=== PATIENT | female | born 1975 | race Caucasian/White ===

== ENCOUNTER 2018-07-19 07:44 | Emergency (ER) | payer OTHER ==
[2018-07-19] MEDS ORDERED: LORazepam 2 MG/ML VIAL IVP ONE ×2 (08:00→08:15)
[2018-07-19] MEDS ORDERED: ONDANSETRON 4 MG/2 ML VIAL IVP ONE (08:10)
[2018-07-19 08:15] LABS: INR 0.94
--- NOTE | 2018-07-19 08:15 | ER Report ---
History and Physical Time Seen By MD: 08:12 Hx. of Stated Complaint: CHEST PRESSURE HPI/ROS CHIEF COMPLAINT: Chest pain, chest tightness, forearm and wrist spasm. HISTORY OF PRESENT ILLNESS: Patient is a 43-year-old female who works at the [employer] who presents to the emergency department by ambulance for an episode of chest pain. Symptoms started around 7:15 this morning. Patient was complaining of tightness in the chest had some rapid breathing also complaining of spasm in the forearm and wrists bilaterally. Patient was given aspirin prior to arrival. And has no prior history of similar episodes and denies any significant past medical history including cardiac history. Patient states that she just "doesn't feel well". She does report some nausea. No report of infection like symptoms including fevers or chills. REVIEW OF SYSTEMS: Constitutional: No fever, no chills. Eyes: No discharge. ENT: No sore throat. Cardiovascular: Chest tightness Respiratory: Shortness of breath Gastrointestinal: Nausea, no abdominal pain Genitourinary: No hematuria. Musculoskeletal: No back pain. Skin: No rashes. Neurological: No headache. Allergies: Coded Allergies: prochlorperazine (Verified Allergy, Intermediate, 07/19/18) Home Meds Active Scripts Lorazepam (ATIVAN) 1 Mg Tablet, 1 MG PO Q8H for anxiety, #15 TAB 0 Refills Prov:CORIN OGLESBY MD 07/19/18 Past Medical/Surgical History Patient denies Constitutional Vital Sign - Last 24 Hours 07/19/18 07/19/18 07/19/18 07/19/18 07:45 07:49 07:50 08:00 Temp 97.4 Pulse ??? 76 83 Resp 30 27 B/P (MAP) 133/79 (97) 133/79 133/78 (96) Pulse Ox 99 96 O2 Delivery Room Air 07/19/18 07/19/18 07/19/18 07/19/18 08:15 08:30 08:45 09:26 Pulse 93 75 84 Resp 31 30 30 B/P (MAP) 131/96 (108) 147/81 (103) 140/62 (88) Pulse Ox 90 O2 Flow Rate 1.0 Physical Exam General/Constitutional: Patient is awake, alert, nontoxic, appears anxious and is hyperventilating. Head: Normocephalic and atraumatic. Eyes: Conjunctival clear, Pupils are equal and reactive to light. Extraocular muscles are intact and symmetrical. Sclera are clear and anicteric. Ears:External canals are clear. Tympanic membranes are clear with normal landmarks and light reflex. Nares: No rhinorrhea or bleeding. Turbinates are pink and moist. Oropharyngeal: Mucous membranes are moist. There is no pharyngeal erythema or exudate. There are no palatal petechiae. Uvula is midline and symmetrical. Neck: Supple, no adenopathy. Cardiovascular: Heart is regular rate and rhythm without audible murmurs, rubs or gallops. Pulmonary: Lungs are clear to auscultation bilaterally. There are no wheezes, rales, or rhonchi. Chest rise is symmetrical Abdomen: Soft, nontender, no guarding or peritoneal signs. Extremities: No gross deformities, No peripheral cyanosis. Patient is having episodes of carpopedal spasm Neuro: Alert and oriented X3, Skin: No rashes, skin is warm dry and well perfused. Medical Decision Making Data Points Result Diagram: 07/19/18 0745 07/19/18 0745 Laboratory Hematology Test 07/19/18 07:45 07/19/18 10:58 Red Blood Count 5.24 M/uL (4.17-5.56) Mean Corpuscular Volume 89.4 fL (80.0-96.0) Mean Corpuscular Hemoglobin 29.9 pg (26.0-33.0) Mean Corpuscular Hemoglobin Concent 33.4 g/dL (32.0-36.0) Red Cell Distribution Width 13.7 % (11.5-14.5) Mean Platelet Volume 10.0 fL (7.2-11.1) Neutrophils (%) (Auto) 77.3 % (39.4-72.5) Lymphocytes (%) (Auto) 17.1 % (17.6-49.6) Monocytes (%) (Auto) 5.1 % (4.1-12.4) Eosinophils (%) (Auto) 0.1 % (0.4-6.7) Basophils (%) (Auto) 0.4 % (0.3-1.4) Nucleated RBC Relative Count (auto) 0.1 /100WBC Neutrophils # (Auto) 9.5 K/uL (2.0-7.4) Lymphocytes # (Auto) 2.1 K/uL (1.3-3.6) Monocytes # (Auto) 0.6 K/uL (0.3-1.0) Eosinophils # (Auto) 0.0 K/uL (0.0-0.5) Basophils # (Auto) 0.1 K/uL (0.0-0.1) Nucleated RBC Absolute Count (auto) 0.01 K/uL Prothrombin Time 12.5 seconds (12.0-14.4) Prothromb Time International Ratio 0.94 Activated Partial Thromboplast Time 35 seconds (23-35) Sodium Level 140 mmol/L (137-145) Potassium Level 4.2 mmol/L (3.5-5.0) Chloride Level 113 mmol/L (98-107) Carbon Dioxide Level 17 mmol/L (22-31) Blood Urea Nitrogen 10 mg/dl (7-18) Creatinine 0.80 mg/dl (0.52-1.04) Glomerular Filtration Rate Calc > 60.0 Random Glucose 111 mg/dl (75-110) Calcium Level 9.4 mg/dl (8.4-10.2) Total Bilirubin 0.6 mg/dl (0.2-1.3) Aspartate Amino Transf (AST/SGOT) 19 U/L (0-35) Alanine Aminotransferase (ALT/SGPT) 13 U/L (0-56) Alkaline Phosphatase 95 U/L (0-126) B-Type Natriuretic Peptide 8 pg/ml (0-100) Total Protein 8.0 g/dl (6.3-8.2) Albumin 4.3 g/dl (3.5-5.0) Human Chorionic Gonadotropin, Qual Negative (NEGATIVE) Troponin I < 0.012 ng/ml Chemistry Test 07/19/18 07:45 07/19/18 10:58 White Blood Count 12.3 k/uL (4.5-11.0) Red Blood Count 5.24 M/uL (4.17-5.56) Hemoglobin 15.6 g/dL (12.0-16.0) Hematocrit 46.8 % (34.0-47.0) Mean Corpuscular Volume 89.4 fL (80.0-96.0) Mean Corpuscular Hemoglobin 29.9 pg (26.0-33.0) Mean Corpuscular Hemoglobin Concent 33.4 g/dL (32.0-36.0) Red Cell Distribution Width 13.7 % (11.5-14.5) Platelet Count 357 K/uL (150-450) Mean Platelet Volume 10.0 fL (7.2-11.1) Neutrophils (%) (Auto) 77.3 % (39.4-72.5) Lymphocytes (%) (Auto) 17.1 % (17.6-49.6) Monocytes (%) (Auto) 5.1 % (4.1-12.4) Eosinophils (%) (Auto) 0.1 % (0.4-6.7) Basophils (%) (Auto) 0.4 % (0.3-1.4) Nucleated RBC Relative Count (auto) 0.1 /100WBC Neutrophils # (Auto) 9.5 K/uL (2.0-7.4) Lymphocytes # (Auto) 2.1 K/uL (1.3-3.6) Monocytes # (Auto) 0.6 K/uL (0.3-1.0) Eosinophils # (Auto) 0.0 K/uL (0.0-0.5) Basophils # (Auto) 0.1 K/uL (0.0-0.1) Nucleated RBC Absolute Count (auto) 0.01 K/uL Prothrombin Time 12.5 seconds (12.0-14.4) Prothromb Time International Ratio 0.94 Activated Partial Thromboplast Time 35 seconds (23-35) Glomerular Filtration Rate Calc > 60.0 Calcium Level 9.4 mg/dl (8.4-10.2) Total Bilirubin 0.6 mg/dl (0.2-1.3) Aspartate Amino Transf (AST/SGOT) 19 U/L (0-35) Alanine Aminotransferase (ALT/SGPT) 13 U/L (0-56) Alkaline Phosphatase 95 U/L (0-126) B-Type Natriuretic Peptide 8 pg/ml (0-100) Total Protein 8.0 g/dl (6.3-8.2) Albumin 4.3 g/dl (3.5-5.0) Human Chorionic Gonadotropin, Qual Negative (NEGATIVE) Troponin I < 0.012 ng/ml Coagulation Test 07/19/18 07:45 Prothrombin Time 12.5 seconds Prothromb Time International Ratio 0.94 Activated Partial Thromboplast Time 35 seconds EKG/Imaging EKG Interpretation EKG shows sinus rhythm with short NH interval. With nonspecific ST segment abnormality no prior EKG to compare with. Monitor Interpretation: Normal Sinus Rhythm Imaging [place] [facility] [place] NAME: Tracie Santos : 1975 MR: [id number] V: [id number] EXAM DATE: ORDERING PHYSICIAN: CORIN OGLESBY TECHNOLOGIST: Location: [facility] Patient: Tracie Santos : 1975 Visit/Account:[id number] Date of Sevice: 07/19/2018 Study: Single portable view of the chest. Indication: Chest pain. Comparison study: None. Technique: Single AP view of the chest demonstrates no evidence of acute infiltrate. There is no evidence of pleural effusion or pneumothorax. The mediastinal, cardiac, and diaphragmatic contours are unremarkable. IMPRESSION: Unremarkable chest. Report Dictated By: Mohinder Arguello at 07/19/2018 8:22 AM Report E-Signed By: Mohinder Arguello at 07/19/2018 8:23 AM WSN:[id number] ED Course/Re-evaluation ED Course 07/19/2018 8:14:52 am plan at this time will be to give IV Ativan for treatment of hyperventilation. We will perform cardiac workup with a troponin. More likely patient is experiencing chest tightness and carpopedal spasm from hyperventilation rather than from acute coronary syndrome. 07/19/2018 8:47:07 am chest x-ray and blood work normal with the exception of a low CO2 level which is expected due to the patient's rapid breathing. [place] very strongly now that symptoms are related to hyperventilation. Have been doing improved although now she states that her symptoms are worse she is breathing approximate 40 times per minute despite 1.5 mg of Ativan 75 g of fentanyl. We'll try some Toradol for pain and carpopedal spasm we'll also give 50 mg of Benadryl to assist with sedation. 07/19/2018 9:07:05 am and symptoms markedly improved after Benadryl. Still having some Carpopedal spasm I will tried IV Norflex to assist with muscle relaxation. But breathing seems to have improved. Patient no longer complaining of chest tightness. 07/19/2018 11:26:25 am repeat troponin is negative will discharge home with diagnosis of hyperventilation syndrome Decision to Disposition Date: Jul 19, 2018 Decision to Disposition Time: 11:26 Depart Departure Latest Vital Signs Vital Signs Date Time Temp Pulse Resp B/P (MAP) Pulse Ox O2 Delivery O2 Flow Rate FiO2 07/19/18 09:26 1.0 07/19/18 08:45 84 30 140/62 (88) 90 07/19/18 07:50 97.4 Room Air Impression: Primary Impression: Hyperventilation syndrome Condition: Improved Disposition: HOME OR SELF-CARE Referrals: PRISCILLA OMALLEY MD Called to schedule a follow-up appointment and establish care New Scripts Lorazepam (ATIVAN) 1 Mg Tablet 1 MG PO Q8H for anxiety, #15 TAB 0 Refills Prov: CORIN OGLESBY MD 07/19/18 Patient Instructions: Hyperventilation (ED) CORIN OGLESBY MD Jul 19, 2018 08:15
[2018-07-19 08:19] LABS: PLATELET COUNT, AUTOMATED 357 K/uL (150-450)
--- NOTE | 2018-07-19 08:25 | RADIOLOGY IMAGING REPORT ---
FACILITY: [facility] [place] PATIENT NAME: Tracie Santos : 1975 MR: [id number] V: [id number] EXAM DATE: ORDERING PHYSICIAN: CORIN OGLESBY TECHNOLOGIST: Location: [facility] Patient: Tracie Santos : 1975 Visit/Account:[id number] Date of Sevice: 07/19/2018 Study: Single portable view of the chest. Indication: Chest pain. Comparison study: None. Technique: Single AP view of the chest demonstrates no evidence of acute infiltrate. There is no evid ence of pleural effusion or pneumothorax. The mediastinal, cardiac, and diaphragmatic contours are un remarkable. IMPRESSION: Unremarkable chest. Report Dictated By: Mohinder Arguello at 07/19/2018 8:22 AM Report E-Signed By: Mohinder Arguello at 07/19/2018 8:23 AM WSN:[id number]
[2018-07-19] MEDS ORDERED: fentaNYL CITR 100 MCG/2 ML AMP IVP ONE (08:30)
--- NOTE | 2018-07-19 08:41 | EKG ---
FACILITY: [facility] [place] PATIENT NAME: VIPUL ANDREWS : [id number] MR: [id number] V: [id number] EXAM DATE: ORDERING PHYSICIAN: CORIN OGLESBY TECHNOLOGIST: VICTOR M Test Reason : CHEST PAIN Blood Pressure : / mmHG Vent. Rate : 068 BPM Atrial Rate : 068 BPM P-R Int : 090 ms QRS Dur : 080 ms QT Int : 434 ms P-R-T Axes : 030 -03 008 degrees QTc Int : 461 ms Sinus rhythm with short ID Non-specific T changes. Abnormal ECG No previous ECGs available Confirmed by JAIRO BUTLER ([id number]) on 07/19/2018 8:59:47 AM Referred By: MENDEL Confirmed By:JAIRO BUTLER
[2018-07-19] MEDS ORDERED: diphenhydrAMINE 50 MG/ML VIAL IVP ONE (08:45)
[2018-07-19] MEDS ORDERED: KETOROLAC 15 MG/ML VIAL IVP ONE (08:45)
[2018-07-19] MEDS ORDERED: ORPHENADRINE 60MG/2ML INJ IVP ONE (09:10)
[2018-07-19] MEDS ORDERED: LORA-1456 PO (11:28)
[2018-07-19 11:30] VITALS: BP 116/67
== END 2018-07-19 11:37 | disposition home or self-care (01) ==
LOC: ER 07:46
DX: F45.8 Other somatoform disorders (principal)
CPT/HCPCS: 36415; 71045; 83880; 84484; 84703; 85025; 85610; 85730; 93005; 96374; 96375; 96376; 99284; J1200; J1885; J2060; J2360; J2405; J3010; 82040; 82247; 82310; 82374; 82435; 82565; 82947; 84075; 84132; 84155; 84295; 84450; 84460; 84520

== ENCOUNTER → 2018-07-19 | Outpatient (CLI) | payer OTHER ==
[~2018-07-19] MED LIST: LORA-1456 PO
== END ==
LOC: AMB 07:33
PROVIDERS: ATTEND Nurse Practitioner
DX: R06.82 Tachypnea, not elsewhere classified (principal); R07.89 Other chest pain
CPT/HCPCS: A0425; A0427

== ENCOUNTER 2018-08-24 06:08 | Emergency (ER) | payer OTHER ==
[2018-08-24] MEDS ORDERED: RANI-366 PO (06:17)
--- NOTE | 2018-08-24 06:22 | ER Report ---
History and Physical Time Seen By MD: 06:22 Hx. of Stated Complaint: patient states, nausea, vomiting and diarrhea on and off for the last week. patient states she feels like she can't get a deep breath and has tingling in hands. (CATHY MONTERO MD) HPI/ROS CHIEF COMPLAINT: nausea, vomiting, diarrhea, trouble breathing HISTORY OF PRESENT ILLNESS: This is a 43 year old female. She has a history of several years history of slowly worsening nausea, vomiting and diarrhea. It has progressed to a daily basis. She has vomiting and pain that starts in the early mornings, sometimes as early as midnight. She begins throwing up food that she has eating the previous night. She has severe symptoms through the morning. until mid day or early afternoon, finally improves. She does not eat anything all day because eating makes the symptoms worse. She then will finally eat dinner which usually goes okay and then starts all over the next day. This is combined with a significant amount of anxiety with concern that there is something terribly wrong. She does tell me that she feels short of breath today as well. Has been having trouble catching her breath and continuing rapid breathing, now with spasms in hands/forearms and legs/feet/calves. She had a cardiac workup last month when having similar symptoms which was negative. She was seen by her PCP, Dr. Gonsales, recently and recommended that she have a GI workup, but has not had a chance to make this happen yet. Feels sweaty at times, but no fever. Pain is mainly central abdomen and to the right lower. Has intermittent diarrhea throughout the day, seems worse in the morning. Notes that her mother has a long history of similar problems, and medical records secretary have been unable to determine the cause. (CATHY MONTERO MD) Allergies: Coded Allergies: prochlorperazine (Verified Allergy, Intermediate, 08/24/18) Home Meds Active Scripts Metoclopramide Hcl (METOCLOPRAMIDE HCL) 10 Mg Tablet, 10 MG PO Q6H for Nausea, #30 TAB 0 Refills Prov:CORIN OGLESBY MD 08/24/18 Reported Medications Ondansetron 4 Mg Odt (ONDANSETRON 4 MG ODT) 4 Mg Tab.rapdis, 1 TAB PO Q6H 08/24/18 Ranitidine Hcl (ZANTAC) 150 Mg Tablet, 150 MG PO QDAY, TAB 08/24/18 Discontinued Scripts Lorazepam (ATIVAN) 1 Mg Tablet, 1 MG PO Q8H for anxiety, #15 TAB 0 Refills Prov:CORIN OGLESBY MD 07/19/18 Reviewed Nurses Notes: Yes (ACTHY MONTERO MD) Constitutional Vital Sign - Last 24 Hours 08/24/18 08/24/18 08/24/18 08/24/18 06:12 06:13 06:23 06:30 Temp 97.3 Pulse 60 66 Resp 28 13 B/P (MAP) 134/78 134/78 (96) 126/62 (83) Pulse Ox 91 98 O2 Delivery Room Air 08/24/18 08/24/18 08/24/18 08/24/18 06:38 06:53 07:00 07:08 Pulse 68 60 46 Resp 42 33 14 B/P (MAP) 126/81 (96) Pulse Ox 99 97 08/24/18 08/24/18 08/24/18 08/24/18 07:13 07:30 07:33 07:51 Pulse 45 43 Resp 13 19 B/P (MAP) 99/55 (70) Pulse Ox 94 97 O2 Flow Rate 1.0 08/24/18 08/24/18 08/24/18 08/24/18 07:53 08:00 08:13 08:18 Pulse 46 47 47 Resp 14 20 23 B/P (MAP) 109/60 (76) Pulse Ox 99 100 99 08/24/18 08/24/18 08:30 08:38 Pulse 46 Resp 21 B/P (MAP) 103/56 (72) Pulse Ox 100 (CORIN OGLESBY MD) Physical Exam General Appearance: The patient is alert. Very anxious and acute distress with hyperventilation. Eyes: Pupils are equal, round. No pallor, injection or icterus. ENT: Mucous membranes are moist. Normal oral mucosa. Posterior oropharynx is normal. Neck: Supple and non tender. Respiratory: Lungs are clear to auscultation. Cardiovascular: Regular rate and rhythm. No murmurs, gallops or rubs. Normal capillary refill. Gastrointestinal: Abdomen is soft, tender in epigastric, jose-umbilical, and right lower abdomen areas. Nondistended. Guarding in right lower, no rebound. Normal active bowel sounds. No costovertebral angle tenderness with percussion. Neurological: Alert and oriented x3. No focal neurologic deficits Skin: Warm and dry. No rashes. Musculoskeletal: Extremities tender in forearms and calves, with carpo-pedal spasms. Full range of motion. No tenderness in palpation of the cervical, thoracic and lumbar spine. DIFFERENTIAL DIAGNOSIS: After history and physical exam, differential diagnosis was considered for patient with ongoing problems of nausea, vomiting, diarrhea on a daily basis with concern for possible inflammatory or irritable bowel type syndrome versus other problems such as carcinoid. At this point I would like to focus on trying to help her with her breathing to stop hyperventilating and also started GI workup including labs and a CT scan of the abdomen. Based on positioning this does not appear to be gallbladder related although consideration for ultrasound could be made with her symptomatology. ([facility]) Medical Decision Making Data Points Result Diagram: 08/24/18 0705 08/24/18 0705 Laboratory Hematology Test 08/24/18 06:05 08/24/18 07:05 Human Chorionic Gonadotropin, Qual Negative (NEGATIVE) Red Blood Count 5.00 M/uL (4.17-5.56) Mean Corpuscular Volume 89.5 fL (80.0-96.0) Mean Corpuscular Hemoglobin 29.9 pg (26.0-33.0) Mean Corpuscular Hemoglobin Concent 33.4 g/dL (32.0-36.0) Red Cell Distribution Width 13.5 % (11.5-14.5) Mean Platelet Volume 9.6 fL (7.2-11.1) Neutrophils (%) (Auto) 79.8 % (39.4-72.5) Lymphocytes (%) (Auto) 14.5 % (17.6-49.6) Monocytes (%) (Auto) 5.0 % (4.1-12.4) Eosinophils (%) (Auto) 0.3 % (0.4-6.7) Basophils (%) (Auto) 0.4 % (0.3-1.4) Nucleated RBC Relative Count (auto) 0.0 /100WBC Neutrophils # (Auto) 9.1 K/uL (2.0-7.4) Lymphocytes # (Auto) 1.6 K/uL (1.3-3.6) Monocytes # (Auto) 0.6 K/uL (0.3-1.0) Eosinophils # (Auto) 0.0 K/uL (0.0-0.5) Basophils # (Auto) 0.1 K/uL (0.0-0.1) Nucleated RBC Absolute Count (auto) 0.00 K/uL Sodium Level 140 mmol/L (137-145) Potassium Level 3.3 mmol/L (3.5-5.0) Chloride Level 108 mmol/L (98-107) Carbon Dioxide Level 17 mmol/L (22-31) Blood Urea Nitrogen 9 mg/dl (7-18) Creatinine 0.80 mg/dl (0.52-1.04) Glomerular Filtration Rate Calc > 60.0 Random Glucose 96 mg/dl (75-110) Lactate 4.4 mmol/L (0.7-2.1) Calcium Level 9.1 mg/dl (8.4-10.2) Magnesium Level 2.2 mg/dl (1.7-2.2) Total Bilirubin 0.6 mg/dl (0.2-1.3) Aspartate Amino Transf (AST/SGOT) 17 U/L (0-35) Alanine Aminotransferase (ALT/SGPT) 19 U/L (0-56) Alkaline Phosphatase 94 U/L (0-126) Total Protein 7.6 g/dl (6.3-8.2) Albumin 4.4 g/dl (3.5-5.0) Amylase Level 73 U/L (0-110) Lipase 73 U/L (23-300) Chemistry Test 08/24/18 06:05 08/24/18 07:05 Human Chorionic Gonadotropin, Qual Negative (NEGATIVE) White Blood Count 11.4 k/uL (4.5-11.0) Red Blood Count 5.00 M/uL (4.17-5.56) Hemoglobin 15.0 g/dL (12.0-16.0) Hematocrit 44.8 % (34.0-47.0) Mean Corpuscular Volume 89.5 fL (80.0-96.0) Mean Corpuscular Hemoglobin 29.9 pg (26.0-33.0) Mean Corpuscular Hemoglobin Concent 33.4 g/dL (32.0-36.0) Red Cell Distribution Width 13.5 % (11.5-14.5) Platelet Count 306 K/uL (150-450) Mean Platelet Volume 9.6 fL (7.2-11.1) Neutrophils (%) (Auto) 79.8 % (39.4-72.5) Lymphocytes (%) (Auto) 14.5 % (17.6-49.6) Monocytes (%) (Auto) 5.0 % (4.1-12.4) Eosinophils (%) (Auto) 0.3 % (0.4-6.7) Basophils (%) (Auto) 0.4 % (0.3-1.4) Nucleated RBC Relative Count (auto) 0.0 /100WBC Neutrophils # (Auto) 9.1 K/uL (2.0-7.4) Lymphocytes # (Auto) 1.6 K/uL (1.3-3.6) Monocytes # (Auto) 0.6 K/uL (0.3-1.0) Eosinophils # (Auto) 0.0 K/uL (0.0-0.5) Basophils # (Auto) 0.1 K/uL (0.0-0.1) Nucleated RBC Absolute Count (auto) 0.00 K/uL Glomerular Filtration Rate Calc > 60.0 Lactate 4.4 mmol/L (0.7-2.1) Calcium Level 9.1 mg/dl (8.4-10.2) Magnesium Level 2.2 mg/dl (1.7-2.2) Total Bilirubin 0.6 mg/dl (0.2-1.3) Aspartate Amino Transf (AST/SGOT) 17 U/L (0-35) Alanine Aminotransferase (ALT/SGPT) 19 U/L (0-56) Alkaline Phosphatase 94 U/L (0-126) Total Protein 7.6 g/dl (6.3-8.2) Albumin 4.4 g/dl (3.5-5.0) Amylase Level 73 U/L (0-110) Lipase 73 U/L (23-300) (CORIN OGLESBY MD) EKG/Imaging Imaging FACILITY: [facility] [place] PATIENT NAME: Tracie Santos : 1975 MR: [id number] V: [id number] EXAM DATE: ORDERING PHYSICIAN: CATHY MONTERO TECHNOLOGIST: Location: [facility] Patient: Tracie Santos : 1975 Visit/Account:[id number] Date of Sevice: 08/24/2018 CT ABDOMEN PELVIS W/ CON HISTORY: Abdominal pain, nausea TECHNIQUE: CT abdomen and pelvis with intravenous contrast. Contiguous axial images of the abdomen and pelvis was performed from the lung bases to the symphysis pubis. One of the following dose optimization techniques was utilized in the performance of this exam: Automated exposure control; adjustment of the mA and/or kV according to the patient's size; or use of an iterative rec onstruction technique. Specific details can be referenced in the facility's radiology CT exam operational policy. CONTRAST: 75 cc of Isovue-370 COMPARISON: None. FINDINGS: Visualized lung bases: Negative. Hepatobiliary: Negative. Spleen: Negative. Adrenals: Negative. Kidneys/: 2 mm nonobstructing stone is noted superior pole left kidney. No obstructing ureteral stones. IUD is noted within the uterus. There is a 5.3 x 3.5 cm enhancing fibroid associated with the right uterine body/lower uterine segment. Pancreas: Negative. GI: Appendix is normal. No bowel obstruction or focal inflammation. Vessels/spaces/nodes: Mild atherosclerotic calcification is noted. Bones/soft tissues: Degenerative changes noted L5-S1. IMPRESSION: 1. No acute pathology in the abdomen or pelvis. The appendix is normal. 2. 2 mm nonobstructing stone superior pole left kidney. 3. 5.3 x 3.5 cm probable fibroid associated with the right uterine body/lower uterine segment. IUD is appropriately located within the endometrium. Report Dictated By: Kyle Willis MD at 08/24/2018 8:07 AM Report E-Signed By: Kyle Willis MD at 08/24/2018 8:13 AM WSN:[id number] (CORIN OGLSEBY MD) ED Course/Re-evaluation ED Course 08/24/2018 8:47:54 am patient improved at this time discussed CT scan findings which showed no acute pathology. Reinforced need to follow-up with gastroenterology and number will be provided and discharge instructions. Decision to Disposition Date: Aug 24, 2018 Decision to Disposition Time: 08:47 (CORIN OGLESBY MD) Depart Departure Latest Vital Signs Vital Signs Date Time Temp Pulse Resp B/P (MAP) Pulse Ox O2 Delivery O2 Flow Rate FiO2 08/24/18 08:38 46 21 100 08/24/18 08:30 103/56 (72) 08/24/18 07:51 1.0 08/24/18 06:12 97.3 Room Air (CORIN OGLESBY MD) Impression: Primary Impression: Cyclic vomiting syndrome Additional Impression: Hyperventilation syndrome Condition: Improved Disposition: HOME OR SELF-CARE New Scripts Metoclopramide Hcl (METOCLOPRAMIDE HCL) 10 Mg Tablet 10 MG PO Q6H for Nausea, #30 TAB 0 Refills Prov: CORIN OGLESBY MD 08/24/18 Departure Forms: ER Transition Record, Medications Reconciliation, Off Work/School Form, School or Work Release?: Work Number of days to be released: 2 Patient Portal Information Additional Instructions: Schedule a follow up appointment with: [facility] [address] [place] [address]., [place] [address] Problem Qualifiers Primary Impression: Cyclic vomiting syndrome Vomiting Intractability: intractable Nausea presence: with nausea Qualified Codes: G43.A1 - Cyclical vomiting, intractable CATHY MONTERO MD Aug 24, 2018 06:22 CORIN OGLESBY MD Aug 24, 2018 07:38
[2018-08-24] MEDS ORDERED: ONDA4TAB9 PO (06:27)
[2018-08-24] MEDS ORDERED: MORPHINE 4 MG/ML SDV IVP ONE (06:35)
[2018-08-24] MEDS ORDERED: METOCLOPRAMIDE 10 MG/2 ML SDV IVP ONE (06:35)
[2018-08-24] MEDS ORDERED: NS(*) 0.9% 1000 ML BAG 1,000 ML IV ONE ×2 (06:35→08:05)
[2018-08-24] MEDS ORDERED: diphenhydrAMINE 50 MG/ML VIAL IVP ONE (06:35)
[2018-08-24] MEDS ORDERED: LORazepam 2 MG/ML VIAL IVP ONE (06:35)
[2018-08-24] MEDS ORDERED: IOPAMIDOL 76% 100 ML INFUS BTL 100 ML ONE (07:02)
[2018-08-24 07:11] LABS: PLATELET COUNT, AUTOMATED 306 K/uL (150-450)
--- NOTE | 2018-08-24 08:18 | RADIOLOGY IMAGING REPORT ---
FACILITY: [facility] PATIENT NAME: Tracie Santos : 1975 MR: [id number] V: [id number] EXAM DATE: ORDERING PHYSICIAN: CATHY MONTERO TECHNOLOGIST: Location: [facility] [place] Patient: Tracie Santos : 1975 Visit/Account:[id number] Date of Sevice: 08/24/2018 CT ABDOMEN PELVIS W/ CON HISTORY: Abdominal pain, nausea TECHNIQUE: CT abdomen and pelvis with intravenous contrast. Contiguous axial images of the abdomen and pelvis was performed from the lung bases to the symphysis pubis. One of the following dose optimization techniques was utilized in the performance of this exam: Autom ated exposure control; adjustment of the mA and/or kV according to the patient's size; or use of an i terative reconstruction technique. Specific details can be referenced in the facility's radiology C T exam operational policy. CONTRAST: 75 cc of Isovue-370 COMPARISON: None. FINDINGS: Visualized lung bases: Negative. Hepatobiliary: Negative. Spleen: Negative. Adrenals: Negative. Kidneys/: 2 mm nonobstructing stone is noted superior pole left kidney. No obstructing ureteral st ones. IUD is noted within the uterus. There is a 5.3 x 3.5 cm enhancing fibroid associated with the right u terine body/lower uterine segment. Pancreas: Negative. GI: Appendix is normal. No bowel obstruction or focal inflammation. Vessels/spaces/nodes: Mild atherosclerotic calcification is noted. Bones/soft tissues: Degenerative changes noted L5-S1. IMPRESSION: 1. No acute pathology in the abdomen or pelvis. The appendix is normal. 2. 2 mm nonobstructing stone superior pole left kidney. 3. 5.3 x 3.5 cm probable fibroid associated with the right uterine body/lower uterine segment. IUD is appropriately located within the endometrium. Report Dictated By: Kyle Willis MD at 08/24/2018 8:07 AM Report E-Signed By: Kyle Willis MD at 08/24/2018 8:13 AM WSN:[id number]
[2018-08-24 08:30] VITALS: BP 103/56
[2018-08-24] MEDS ORDERED: METO-224 PO (08:49)
== END 2018-08-24 09:00 | disposition home or self-care (01) ==
LOC: ER 07:04
DX: G43.A1 Cyclical vomiting, in migraine, intractable (principal); F45.8 Other somatoform disorders; R20.2 Paresthesia of skin; R10.13 Epigastric pain; R25.2 Cramp and spasm
CPT/HCPCS: 36415; 74177; 82150; 83605; 83690; 83735; 84703; 85025; 96361; 96374; 96375; 99284; J1200; J2060; J2270; J2765; J7030; Q9967; 82040; 82247; 82310; 82374; 82435; 82565; 82947; 84075; 84132; 84155; 84295; 84450; 84460; 84520